=== PATIENT | female | born 1995 | race Caucasian/White ===

== ENCOUNTER 2024-04-28 05:08 | Emergency (ER) | payer OTHER, SELFPAY ==
[2024-04-28 05:18] VITALS: BP 112/80; PULSE 86; RESP 16; TEMP 36.5; O2SAT 100
[2024-04-28] MEDS: HYDROcodone/acetaminophen (*CRX) 5-325 MG TABLET 1 TAB PO (07:06)
[2024-04-28] MEDS: CYCLOBENZAPRINE HCL 10 MG TABLET PO (07:15)
--- NOTE | 2024-04-28 07:26 | ED.GENADULT ---
HPI - General Adult General Chief complaint: Back Pain/Injury Stated complaint: muscle spasms in low back; 19 weeks Time Seen by Provider: 04/28/24 05:35 History of Present Illness HPI narrative: 28-year-old female that is 19 weeks presented to the emergency department for evaluation for left hip pain. Patient states she has had prior history of sciatica. Patient has been having worsening sciatica pain over the course of the last few days. Patient has been taking Tylenol for pain control without significant improvement. Patient denies any associated numbness or weakness of the left leg but states that she does have intermittent radiating pain down that leg. Patient denies any urinary symptoms. Patient denies any falls or injuries. Related Data Allergies Allergy/AdvReac Type Severity Reaction Status Date / Time Corticosteroids Allergy Unknown Verified 04/28/24 05:24 (Glucocorticoids) latex Allergy Rash Verified 04/28/24 05:24 Review of Systems Review of Systems: All systems reviewed & are unremarkable except as noted in HPI and below Exam Narrative: APPEARANCE: Well appearing, no pain, no distress, well-nourished. HEAD: normocephalic, atraumatic. EYES: PERRLA/EOMI, conjunctivae clear. NOSE: Normal no drainage EARS:TMS clear with good light reflex. THROAT: Pharynx clear, no exudate. NECK: Supple. No adenopathy, no masses. RESPIRATORY: Airway patent, respirations nonlabored. Clear to auscultation bilaterally, no rales, rhonchi, wheezing. CARDIOVASCULAR: Regular rate and rhythm without murmurs rubs or gallops. ABDOMINAL: Soft, nontender, nondistended, normal bowel sounds MUSCULOSKELETAL: Tenderness of back into left hip NEURO: Alert. Cranial nerves II through XII intact. SKIN: Warm, dry. Normal Color Course Vital Signs Vital signs: Vital Signs Temperature 97.7 F 04/28/24 05:18 Pulse Rate 86 04/28/24 05:18 Respiratory Rate 16 04/28/24 05:18 Blood Pressure 112/80 04/28/24 05:18 Pulse Oximetry 100 04/28/24 05:18 Oxygen Delivery Room Air 04/28/24 05:18 Temperature 97.7 F 04/28/24 05:18 Pulse Rate 75 04/28/24 07:57 Respiratory Rate 15 04/28/24 07:57 Blood Pressure 103/64 04/28/24 07:57 Pulse Oximetry 99 04/28/24 07:57 Oxygen Delivery Room Air 04/28/24 05:18 Medical Decision Making MDM Narrative Medical decision making narrative: 20-year-old female present to the emergency department for evaluation for left lower back pain consistent with sciatica. Patient was initially treated with p.o. medications but additionally we did add IV Dilaudid. Patient was also treated with p.o. Flexeril. Patient did have some minor improvement with her symptoms. Patient was provided additional medications for pain control for home. Patient denies any urinary symptoms. Patient denies any numbness or weakness. Patient was encouraged of close follow-up with her physicians and to return to the emergency department she any worsening symptoms. All questions concerns were addressed. Differential Diagnosis Differential Diagnosis: Lower back pain, sciatica, hip strain, radiculopathy Vital Signs Vital Signs: Vital Signs Temperature 97.7 F 04/28/24 05:18 Pulse Rate 86 04/28/24 05:18 Respiratory Rate 16 04/28/24 05:18 Blood Pressure 112/80 04/28/24 05:18 Pulse Oximetry 100 04/28/24 05:18 Oxygen Delivery Room Air 04/28/24 05:18 Temperature 97.7 F 04/28/24 05:18 Pulse Rate 75 04/28/24 07:57 Respiratory Rate 15 04/28/24 07:57 Blood Pressure 103/64 04/28/24 07:57 Pulse Oximetry 99 04/28/24 07:57 Oxygen Delivery Room Air 04/28/24 05:18 Lab Data Lab results reviewed: Yes I reviewed the patient's lab results. Discharge Plan Discharge Clinical Impression: Sciatica, Strain of lumbar region Patient Disposition: Home, Self-Care Condition: Stable Instructions: Antibiotic Form, Sciatica (ED), Lumbar Radiculopathy (ED) Additional Instructions: Tylenol for pain control. Replace Tylenol with [place] for additional pain control. Do not take Tylenol and [place] at the same time as both contain acetaminophen. Flexeril for muscle spasm. Topical lidocaine patch back as needed. Continue have close follow-up with your primary care physician. Have close follow-up with OB. If you have any worsening symptoms or if you have any questions or concerns then please call or return to the emergency department. Prescriptions: New hydrocodone-acetaminophen 5-325 mg tablet 1 tablet PO Q6H PRN (Reason: pain) Qty: 14 0RF cyclobenzaprine 10 mg tablet 10 mg PO BID PRN (Reason: muscle spasm) Qty: 14 0RF Follow-up/Referrals: UNKNOWN,DOCTOR [Primary Care Provider] -
[2024-04-28] MEDS: HYDROmorphone HCL INJ (*CRX) 1 MG/ML SYR IV PUSH (07:55)
[2024-04-28 07:57] VITALS: BP 103/64; PULSE 75; RESP 15; O2SAT 99
== END 2024-04-28 09:12 | disposition home or self-care (01) ==
PROVIDERS: Emergency Provider Emergency Medicine
DX: O99.891 Other specified diseases and conditions complicating pregnancy (principal); M54.42 Lumbago with sciatica, left side; O9A.212 Injury, poisoning and certain other consequences of external causes complicating pregnancy, second trimester; S39.012A Strain of muscle, fascia and tendon of lower back, initial encounter; Z3A.19 19 weeks gestation of pregnancy; X58.XXXA Exposure to other specified factors, initial encounter
CPT/HCPCS: 96374; 99284; A9270; J1171

== ENCOUNTER 2024-09-24 08:23 | Outpatient (RCR) | payer OTHER, SELFPAY ==
[2024-09-19 14:47] VITALS: BP 113/68; PULSE 87
--- NOTE | ~2024-09-24 | US_ITS ---
LIMITED OBSTETRIC ULTRASOUND Ordering provider: Efrem Valdovinos MD History: . DANIE . Comparison: None. FINDINGS: MATERNAL CERVIX: Not visualized. cm which is normal. PRESENTATION: Vertex. Longitudinal lie. PLACENTAL LOCATION: Posterior No previa. HEART RATE: 152 bpm (normal is between 110 to 160 bpm). AMNIOTIC FLUID INDEX: 5.6 cm. 5th percentile is 7 cm. 95th percentile is 22.6 cm. Largest vertical p ocket is 3 cm. normal (DANIE between 5-25 cm in from 20-35 weeks gestation is considered normal). IMPRESSION: Single live fetus. Lowe DANIE. Reviewed, dictated and finalized at location A.
--- NOTE | ~2024-09-24 | US_ITS ---
EXAMINATION: US OB follow up DATE: 09/19/2024 14:23 INDICATION: Estimated weight. Passed due dates. TECHNIQUE: Real-time ultrasound of the pelvis was performed. The interpreting radiologist was not pre sent for the study. COMPARISON: None. FINDINGS: There is a single living fetus in vertex presentation. The placenta is posterior and not low-lying. heart rate is 126 beats per minute (bpm). The amniotic fluid index is 10.2 cm, which is normal (5th%-95%: 7.1-21.4 cm at 40 weeks estimated gestational age) . The following biometric data were obtained: BPD: 9.2 cm -> 37 weeks 4 days Head circumference: 33.6 cm -> 38 weeks 3 days Abdominal circumference: 34.2 cm -> 38 weeks 0 days Femur length: 7.3 cm -> 37 weeks 3 days These measurements are concordant. Head circumference to abdominal circumference ratio: 0.98 (normal range 0.90-1.05). Estimated weight: 3334 g (+/-) 500 g or 7 lbs. 6 oz. (+/-) 1 lbs. 2 oz. IMPRESSION: 1. Single living fetus in vertex presentation with heart rate of 126 bpm. 2. Gestational age by ultrasound of 37 weeks 6 day(s) +/- 2 week(s) 5 day(s) with ultrasound estimate d date of delivery (MARTIR) of 10/04/2024. Estimated weight is 24th percentile by Hadlock criteria when 09/17/2024 is used as the MARTIR. Please correlate with clinical information or earlier ultrasounds f or most accurate MARTIR. 3. Normal amniotic fluid index of 10.2 cm. Reviewed, dictated and finalized at location A. IMPRESSION: 1. Single living fetus in vertex presentation with heart rate of 126 bpm. 2. Gestational age by ultrasound of 37 weeks 6 day(s) +/- 2 week(s) 5 day(s) wi th ultrasound estimated date of delivery (MARTIR) of 10/04/2024. Estimated we ight is 24th percentile by Hadlock criteria when 09/17/2024 is used as the MARTIR. P lease correlate with clinical information or earlier ultrasounds for most accur ate MARTIR. 3. Normal amniotic fluid index of 10.2 cm.
[2024-09-24 09:00] VITALS: BP 110/65; PULSE 72
--- NOTE | 2024-09-24 09:53 | PC.NURSE ---
Called Dr. Valdovinos at [phone] to report pt. NST result, DANIE result, and UCs. Orders received to discharge pt. home to be induced tomorrow morning.
== END 2024-10-09 17:13 | disposition home or self-care (01) ==
LOC: ANHOBOP 08:23
PROVIDERS: Visit Provider Obstetrics & Gynecology
DX: O48.0 Post-term pregnancy (principal)
CPT/HCPCS: 59025; 76815; 76816

== ENCOUNTER 2024-09-25 06:32 | Inpatient (IN) | payer OTHER, SELFPAY ==
[2024-09-25] VITALS (156 sets, daily range): BP systolic 62–166; BP diastolic 12–108; PULSE 41–165; RESP 14; TEMP 36.9–37.4; O2SAT 78–100; BMI 33.2
--- NOTE | 2024-09-25 06:32 | LDADM ---
This patient, Anjali Arriaga, was admitted to Labor/Delivery/Recovery 108 on 09/25/24 at 06:32. Plans for labor, pain management and were discussed with patient. Patient/family oriented to hospital policies and general routines including ID bracelet, bed and alarms, visiting hours, pain management, procedures, bathroom and other care routines, personal items, smoking policy, room service/diet and guest tray routines, infant security routines, and visiting hours. Patient/Family are encouraged to report perceived risks to care and to ask questions if they do not understand what they are told or what they should do. See OBIX for further documentation.
--- OUTSIDE RECORDS SUMMARY | 2024-09-25 06:38 | XMS_ITS | Data Portability ---
Author Organization [place] - [facility] [employer], Main Office Address [address] [place] [address] Assessment No assessment recorded. Plan of Treatment Reminders Order Date Submit Date Provider Last Modified By Organization Details Last Modified Time Details Appointments None recorded. Lab beta-HCG, quantitati ve, serum or plasma 2023 024 [employer], [address] , [place], [address], 4 06:03:26 Referral physical therapist referral - Please call pt to schedule 2023 024 [email or web address] [address] [facility], [address], [address], [place], [address], 5 09:06:22 Procedures None recorded. Surgeries None recorded. Imaging None recorded. Medication Orders None recorded. Patient TargetsNo targets recorded. Patient Instructions Encounter Date Encounter Id Patient Instructions Last Modified By Organization Details Last Modified Time 05/07/2024 [id number] sciatica: exercises [email or web address] Not available 05/07/2024 15:47:26 Reason for Referral Physical Therapist Referral for Bilateral sciatica Please call pt to schedule Referring Physician: Nicole Barbosa, Family Medicine, Encounter Date: 05/07/2024 Results Created Date Observation Date Name Description Value Unit Range Abnormal Flag Note LastModifiedBy Organization Detail LastModifiedTime 08/10/19 23 08/18/2022 PAP THINP REP LB, RFX HPV diagnosis: Commen t . NEGAT KEN FOR INTRA EPITH ELIAL LESIO N OR MALIG JACE . THIS SPECI MEN WAS RESCR EENED PART OF OUR QUALI TY CONTR OL PROGR AM. Not Available [facility] (Lab) [address] [place], [address], 08/18/2022 14:12:48 08/10/19 23 08/18/2022 PAP THINP REP LB, RFX HPV specimen adequacy: Madelyn Colbert Satis facto ry for evalu ation . No endoc ervic al compo nent is id entif ied. Not Available [facility] (Lab) [address] [place], [address], 08/18/2022 14:12:48 08/10/19 23 08/18/2022 PAP THINP REP LB, RFX HPV performed by: Madelyn ly, Cytot echno logis t (ASCP ) Not Available [facility] (Lab) [address] [place], [address], 08/18/2022 14:12:48 08/10/19 23 08/18/2022 PAP THINP REP LB, RFX HPV QC reviewed by: Madelyn Mueller n, Super visor y [employer]ot echno logis t (ASCP ) Not Available [facility] (Lab) [address] [place], [address], 08/18/2022 14:12:48 08/10/19 23 08/18/2022 PAP THINP REP LB, RFX HPV . . Not Available [facility] (Lab) [address] [place], [address], 08/18/2022 14:12:48 08/10/19 23 08/18/2022 PAP THINP REP LB, RFX HPV note: Madelyn george The Pap smear is a scree hernandez test desig tiana to aid in the detec tion of mita ligna nt and malig nant condi tions of the uteri ne cervi x. It is not a diagn ostic proce dure and shoul d not be used as the sole means of detec ting cervi gaby cance r. Both false -posi tive and false -nega tive repor ts do occur . . Not Available [facility] (Lab) [address] [place], [address], 08/18/2022 14:12:48 08/10/19 23 08/18/2022 PAP THINP REP LB, RFX HPV test methodology: Commen t This liqui d based ThinP rep(R ) pap test was scree tiana with the use of an image guide d syststevie m. Not Available [facility] (Lab) [address] [place], [address], 08/18/2022 14:12:48 08/10/19 23 08/18/2022 PAP THINP REP LB, RFX HPV . Commen t The HPV DNA refle x crite storm were not met with this speci men resul t there fore, no HPV testi ng was perfo rmed. . Perfo rmed at: [facility] [place] [address] , [place] [address] Lab Direc tor: Iris hubbard MD, Phone : [phone] Not Available [facility] (Lab) [address] [place], [address], 08/18/2022 14:12:48 01/16/20 24 01/17/2024 HCG, TOTAL , [place] [address] mIU/m L high Refer ence Range Nonpr egnan t or preme nopau solis <5 Postm enopa usal <10 Value s from diffe rent assay metho ds may vary. The use of this assay to monit or or to diagn ose patie nts with cance r or any condi tion unrel ated to pregn makayla has not been clear ed or appro rufus by the FDA or the [facility] actur er of the assay . Not Available [employer] [facility] [address], [place], [address], 01/17/2024 06:03:26 Result Notes None recorded. Problems Name Problem SNOMED Code Status Onset Date Resolution Date Notes Provider Name and Address Organization Details Recorded Time Family history of genetic mutation for Jaquez syndrome 6348057930956 106 Active 2022 Not Available [facility] 21:32:35 Cobalamin deficiency 495465595 Active 2022 Not Available [facility] 21:32:35 Pain in pelvis 63979067 Active 2022 Not Available [facility] 21:32:35 Vitamin D deficiency 07572190 Active 2022 Not Available [facility] 21:32:35 Herpes simplex 71254873 Active 2022 Not Available [facility] 21:32:35 Herpes labialis 6256435 Active 2022 Arlene Vasquez NP [address] [facility], [place] [address], [place], [address] , [employer] 3 11:04:22 Bilateral sciatica 8712421934411 9103 Active 2023 MARK Blair [address] [facility], [place] [address], [place], [address] , [employer] 4 15:41:59 Problem Notes None recorded. Procedures Surgical History Date Name Laterality Status Provider Name and Address Organization Details Recorded Time Tonsillectomy completed Not Available [facility] 08/17/2022 21:31:10 Imaging Results None recorded. Procedure Notes None recorded. Medical Equipment None Reported. Allergies Allergen ID Allergen Name Allergen Category Reaction Reaction Severity Criticality Documentation Date Start Date Code Code System Note Provider Name and Address Organization Details Recorded Time 44002 prednison e medicatio n Not available Not available Not available 08/17/2022 8640 RxNorm Not Available [facility] 21:34:24 79288 latex environme nt,medica tion Not available Not available Not available 05/07/2024 17516 91 RxNorm Arlene Perez RN [facility], [employer] 4 15:27:45 Medications Name Sig Start Date Stop Date Status Note LastModified by Organization Details LastModified Time cyclobenzap rine 10 mg tablet active Not Available Not Available Not Available triamcinolo ne acetonide 0.5 % topical cream APPLY TOPICALLY TO THE AFFECTED AREA TWICE DAILY NEEDED 07/19 completed Not Available Not Available Not Available valacyclovi r 1 gram tablet TAKE 2 TABLETS BY MOUTH EVERY DAY FOR 2 DAYS NEEDED 2023 active Not Available Not Available Not Avai lable hydrocodone 5 mg-acetamin ophen 325 mg tablet active Not Available Not Available No t Available prednisone 20 mg tablet TAKE 3 TABLETS BY MOUTH EVERY DAY FOR 5 DAYS 07/19 completed Not Available Not Available Not Available diclofenac sodium 75 mg tablet,sherry yed release Take 1 tablet twice a day by oral route as needed. active Not Available Not Available No t Available clotrimazol e 1 % topical cream APPLY TOPICALLY TO THE AFFECTED AREA EVERY 12 HOURS 07/19 completed Not Available Not Available Not Available Vitals Date Recorded Body mass index (BMI) Body height Oxygen saturation Oxygen saturation in Arterial blood by Pulse oximetry Heart rate Respiratory rate Body temperature Body weight Systolic blood pressure Diastolic blood pressure Provider Name and Address Organization Details Last Updated DateTime 3 26.8 kg/m2 172.72 cm 99 % 99 % 78 /min 16 /min 97.4 [degF] 62291.6 2 g 115 mm[Hg] 80 mm[Hg] Not Available [facility] 3 21:31:55 Date Recorded Body mass index (BMI) Body height Oxygen saturation Oxygen saturation in Arterial blood by Pulse oximetry Heart rate Respiratory rate Body temperature Body weight Systolic blood pressure Diastolic blood pressure Provider Name and Address Organization Details Last Updated DateTime 3 26.8 kg/m2 172.72 cm 99 % 99 % 88 /min 16 /min 97.7 [degF] 87861.6 9 g 113 mm[Hg] 79 mm[Hg] Not Available [facility] 3 21:31:55 Date Recorded Body height Body mass index (BMI) Body weight Body temperature Heart rate Respiratory rate Oxygen saturation Oxygen saturation in Arterial blood by Pulse oximetry Systolic blood pressure Diastolic blood pressure Provider Name and Address Organization Details Last Updated DateTime 4 175.26 cm 27.2 kg/m2 68401.7 5 g 98.1 [degF] 82 /min 16 /min 98 % 98 % 128 mm[Hg] 78 mm[Hg] Luca Babcock [facility] [employer] [facility] 4 14:25:29 Date Recorded Body height Body mass index (BMI) Body weight Body temperature Heart rate Respiratory rate Oxygen saturation Oxygen saturation in Arterial blood by Pulse oximetry Pain severity - 0-10 verbal numeric rating [Score] - Reported Systolic blood pressure Diastolic blood pressure Provider Name and Address Organization Details Last Updated DateTime 4 175.26 cm 26.6 kg/m2 82781.6 3 g 97.5 [degF] 78 /min 20 /min 98 % 98 % 0 122 mm[Hg] 70 mm[Hg] Arlene Perez RN [facility] [employer] [facility] 4 09:14:54 Date Recorded Body height Body mass index (BMI) Body weight Body temperature Heart rate Respiratory rate Oxygen saturation Oxygen saturation in Arterial blood by Pulse oximetry Pain severity - 0-10 verbal numeric rating [Score] - Reported Systolic blood pressure Diastolic blood pressure Provider Name and Address Organization Details Last Updated DateTime 4 175.26 cm 27.8 kg/m2 65687.0 7 g 97.9 [degF] 98 /min 20 /min 99 % 99 % 2 132 mm[Hg] 60 mm[Hg] Arlene Perez RN [facility] [employer] [facility] 4 15:31:45 Social History Question Answer Notes LastModified by Organizat ion Details LastModified Time Tobacco Smoking Status Never Smoker Not Available [facility] 08/17/2022 21:30:54 Do You Have An Advance Directive? No Information not available 01/16/2024 What Is Your Level Of Alcohol Consumption? Occasional [id number] Information not available 08/17/2022 What Is Your Level Of Caffeine Consumption? Moderate [id number].[id number] Information not available 08/17/2022 In The 14 Days Before Symptom Onset, Have You Had Close Contact With A Laboratory-confi rmed COVID-19 While That Case Was Ill? No Information not available 01/16/2024 In The 14 Days Before Symptom Onset, Have You Had Close Contact With A Person Who Is Under Investigation For COVID-19 While That Person Was Ill? No Information not available 01/16/2024 What Type Of Diet Are You Following? VEGETARIAN MIGRATION.[id number] Information not available 08/17/2022 What Is The Highest Grade Or Level Of School You Have Completed Or The Highest Degree You Have Received? XI48221-1 MIGRATION.98870 64017 Information not available 08/17/2022 What Is Your Occupation? [employer] MIGRATION.72343 82793 Information not available 08/17/2022 Have There Been Any Changes To Your Family Or Social Situation? Yes Pain, Baby Due In September Information not available 05/07/2024 Do You Use Insect Repellent Routinely? No MIGRATION.89622 62763 Information not available 08/17/2022 Where Do You Live? SingleLevelHouse MIGRATION.34764 53874 Information not available 08/17/2022 Do You Have A Medical Power Of Pastry Finisher? No Information not available 01/16/2024 Do You Have Any Pets? Yes MIGRATION.56027 32378 Information not available 08/17/2022 What Is Your Relationship Status? MIGRATION.35822 32060 Information not available 08/17/2022 Do You Use Your Seat Belt Or Car Seat Routinely? Yes MIGRATION.38230 17100 Information not available 08/17/2022 Are You Sexually Active? Yes Information not available 01/16/2024 Do You Have Smoke And Carbon Monoxide Detectors In Your Home? Yes MIGRATION.17249 13915 Information not available 08/17/2022 Are You Passively Exposed To Smoke? No MIGRATION.18070 03283 Information not available 08/17/2022 Are There Any Smokers In Your House? No MIGRATION.18805 01032 Information not available 08/17/2022 Do You Participate In Social Media? Yes MIGRATION.51616 30321 Information not available 08/17/2022 Do You Feel Stressed (tense, Restless, Nervous, Or Anxious, Or Unable To Sleep At Night)? [id number] Information not available 05/07/2024 Do You Use Sunscreen Routinely? Yes MIGRATION.09309 65571 Information not available 08/17/2022 Have You Recently Traveled Abroad? No Information not available 01/16/2024 Are You Currently In School? Yes MIGRATION.45493 48714 Information not available 08/17/2022 Do You Have Any Dietary Restrictions? No MIGRATION.54081 62106 Information not available 08/17/2022 Sex: Female Functional Status Question Answer Note LastModified by Organizat ion Details LastModified Time What is your exercise level? Moderate [id number] Information not available 08/17/2022 Mental Status None recorded. Family History Relationship Description Onset Age of this Age Resolved Age Notes LastModified by Organization Details LastModified Time Maternal Grandfather Type 2 diabetes mellitus [id number] Not available 08/17/2022 21:31:11 Paternal Uncle Family history of malignant neoplasm [id number] Not available 08/17/2022 21:31:11 Mother Osteonecrosi s MIGRATION.203 [id number] Not available 08/17/2022 21:31:12 Medical History Condition Response BLINDNESS N RHEUMATIC FEVER N KIDNEY STONES N BLADDER PROBLEMS N MRSA N OTHER # 1 N POLIO N LUNG DISEASE/DISORDER N HISTORY OF DRUG ABUSE N RADIATION / CHEMOTHERAPY N COPD N Other # 2 N BLOOD DISEASES N SURGERY N EAR OR HEARING PROBLEMS N MUMPS N SHINGLES N FEMALE PROBLEMS / INFECTIONS N DEPRESSION (INCLUDING POST ) N BOWEL PROBLEMS N FAILED BACK SYNDROME N STROKE/TIA N THYROID DISEASE N ULCERS N BENIGN PROSTATIC HYPERPLASIA N MEASLES N CERVICALGIA N TB SKIN TEST N HYPOTENSION N MYOCARDIAL INFARCTION N PARAPELGIA N OBESITY N GERD/NAUSEA N ANEURYSM N URINARY/BLADDER/KIDNEY PROBLEMS N CORONARY ARTERY DISEASE (CAD) N MENIERE'S DISEASE N Do you have Advance directive? N ADDICTION CONCERNS N ENDOMETRIOSIS N USE OF BLOOD THINNERS N SKIN PROBLEMS N EMPHYSEMA N GASTROINTESTINAL DISORDER N PERIPHERAL ARTERY DISEASE N MUSCLE,JOINT OR BONE PROBLEMS N GASTROINTESTINAL BLEEDING N BLOOD CLOTS N ASTHMA N CATARACTS N Abdominal Pain N ERECTILE DYSFUNCTION N ARTERIAL INSUFFICIENCY N GI PROBLEMS N CHF N Low Testosterone N NEUROPATHY N INFERTILITY N AIDS/HIV N FRACTURES N CHEMOTHERAPY / RADIATION N VISION/EYE PROBLEMS N LIVER DISEASE N HYPERTENSION N TOURETTE'S N ANXIETY DISORDER N BLOOD TRANSFUSION N ANEMIA/BLOOD DISORDER N CHRONIC EAR INFECTIONS N BRONCHITIS N TUBERCULOSIS N GLAUCOMA N FOOT PROBLEM N DIVERTICULITIS N SLEEP APNEA N CHICKENPOX N ALLERGIES/HAYFEVER N BACK INJECTIONS N INFECTIOUS DISEASE N PROSTATE N HEART ARRHYTHMIA N ESRD N INSOMNIA N HIGH CHOLESTEROL / HYPERLIPIDEMIA N EYE PROBLEMS N HYPERTHYROIDISM N PVD N EATING DISORDER N EDEMA N CHRONIC PAIN SYNDROME N CONSTIPATION N CAROTID BLOCKAGE N BACK / NECK PROBLEMS N HAVE YOU BEEN HOSPITALIZED OR SEEN IN TH E ER IN THE PAST YEAR ? N ATHEROSCLEROSIS N BREAST PROBLEMS N DIALYSIS N POLYCYSTIC OVARIES N ECZEMA N FIBROMYALGIA N OSTEOPOROSIS N ARTHRITIS N NO SIGNIFICANT PAST MEDICAL HISTORY N APPENDICITIS N DIABETES, TYPE N BAD TEETH N VON WILLIBRAND'S DISEASE N HEARTBURN / REFLUX N ADD/ADHD N AUTISM SPECTRUM DISORDER (ASD) N POST LAMINECTOMY SYNDROME N HEPATITIS / LIVER DISEASE N PULMONARY DISEASE N GOUT N SLEEP DISORDER N ALZHEIMER'S DISEASE N PAIN N DEMENTIA N HERPES N SEIZURES/EPILEPSY N HEADACHES/MIGRAINES N VASCULAR DISEASE N PACEMAKER N DIZZINESS N KIDNEY DISEASE N HEART DISEASE/HEART PROBLEMS N SCARLET FEVER N MULTIPLE SCLEROSIS N MENTAL DISORDER/ILLNESS N DEVELOPMENTAL OR BEHAVIORAL DISORDERS N NEUROPSYCHOLOGICAL N CANCER: SPECIFY N CARDIAC ARRHYTHMIA N PNEUMONIA N ATRIAL FIBRILLATION N Gall Stones N PULMONARY EMBOLISM N AUTOIMMUNE DISEASE N Gynecological History Statement/Question Response Date of Last Pap 08/10/2022 Date of LMP 12/15/2023 Frequency of Cycle (Q days) 28 Obstetrics History GPAL:G 0 P 0 0 0 0 Immunizations Vaccine Type Date Status Note Provider Nam e and Address Organization Details Recorded Time SARS-COV-2 (COVID-19) vaccine, UNSPECIFIED 1 completed Not Available [facility] 08/17/2022 21:34:20 SARS-COV-2 (COVID-19) vaccine, UNSPECIFIED 1 completed Not Available [facility] 08/17/2022 21:34:21 Tdap 0 completed Not Available [facility] 08/17/2022 21:34:21 Influenza, split virus, quadrivalent, PF 0 completed Not Available [facility] 08/17/2022 21:34:21 Past Encounters Encounter ID Performer Location Encounter Start Date Encounter Closed Date Diagnosis/Indication Diagnosis SNOMED-CT Code Diagnosis ICD10 Code Diagnosis Note [id number] [facility] [address] [place] [address] 07/30/2021 00:00:00 07/30/2021 17:33:[id number] [address] 07/19/2022 00:00:00 07/19/2022 18:34:[id number] [address] 08/10/2022 00:00:00 08/10/2022 18:05:25 [id number] Nicole Gauthiermindyayush [address] [address] 09/21/2023 14:12:44 09/21/2023 15:12:03 Herpes simplex 20868731 B00.9 Continue valacyclov ir as prescribes Family his tory of genetic mutation for Jaquez syndrome 0761076360 123459 Z84.81 Colonoscop y recommende d, patient will consider and let us know [id number] Nicole Gauthierdany [address] [address] 01/16/2024 09:05:07 01/16/2024 09:30:51 Possible [id number] Z32.00 [id number] Nicole [address] [address] 05/07/2024 15:22:22 05/07/2024 15:53:22 Bilateral sciatica 4361859088 1776229 M54.31 M54.32 Advised to use topical diclofenac cream and tylenolCon tact OB to further discuss hydrocodon e Health Concerns Section Related Observation LastModified by Organization Detai ls LastModified Time None Recorded Concern Status LastModified by Organization Details LastModified Time None Recorded Advance Directives Directive N: Payers Encounter Date Sequence Insurance Name Policy Number Policy Cm Covered Member ID Cm Member ID Guarantor Name 09/21/2023 1 [facility] [id number] Anjali Arriaga [id number] Geetha Arriaga 01/16/2024 1 [facility] [id number] Anjali Arriaga [id number] Geetha Arriaga 05/07/2024 1 [facility] [id number] Anjali Arriaga [id number] Geetha Corina Notes Date Note Type Note Provider Name and Address Organization Details Recorded Time 09/21/2023 text/html Anjali Arriaga is a 28 year old female patient here to establish care. She was previously under the care of Arlene Vasquez DNP who is no longer with this clinic. She is overall healthy. She has a history of herpes labialis. She has valacyclovir 1 gram on hand as needed. Required once every 3-4 months She has a family history of Jaquez Syndrome. Colonoscopy recommended, she will consider and let us know Flu shot: received flu shot in JunOVID vaccine: received two rounds of covid vaccine in Aug 2020 and September 2020 (Foruforever)Tdap: 06/2019 MARK Blair [address] [facility] [facility] [address], [place], [address], [employer] 10/09/2023 16:55:47 01/16/2024 text/html Anjali Arriaga is a 28 year old female patient here today for a possibility of . She has not missed her period yet, but had 2 positive home tests on 01/13/24. She would like a blood HCG She is doing well mentally. She has started a with folic acid and plans to call an OBGYN today MARK Blair [address] [facility], [facility] [address], [place], [address], [employer] 01/16/2024 09:27:46 05/07/2024 text/html Anjali Arriaga is a 28 year old female patient here to for EDUARDO sciatica pain She states she went to the ER on 04/23/24 for severe sciatic pain, was given cyclobenzaprine and Millstone 5/325mg, discussed risk of these medications with patient todayStill has pain ranging from 4-9/10 MARK Blair [address] [facility], [place], [address], [employer] 05/07/2024 15:50:18 OBGyn Episode No OBEpisode recorded.
[2024-09-25 07:30] LABS: Basophils Percent Auto 0.2 % (0.2-1.2); Eosinophils Absolute Auto 0.1 K/mm3 (0-0.3); Eosinophils Percent Auto 0.6 % (0-4.4); Hematocrit 35.2 % (37.0-47.0); Hemoglobin 11.5 g/dL (12.0-15.0); Immature Granulocyte Absolute 0.06 K/mm3 (0.00-0.031); Immature Granulocyte Percent A 0.7 % (0-0.5); Lymphocytes Absolute Auto 1.44 K/mm3 (0.9-3.2); Lymphocytes Percent Auto 17.7 % (18.3-44.2); Mean Corpuscular HGB Conc 32.7 g/dl (32-36); Mean Corpuscular Hemoglobin 32.5 pg (26-34); Mean Corpuscular Volume 99.4 fl (80-100); Mean Platelet Volume 9.5 fl (7.4-10.4); Monocytes Absolute Auto 0.6 K/mm3 (0.1-0.6); Monocytes Percent Auto 7.7 % (2.6-8.5); Neutrophils Absolute Auto 5.9 K/mm3 (1.3-6.7); Neutrophils Percent Auto 73.1 % (45.5-73.1); Platelet Count Result 208 k/mm3 (150-375); Red Blood Count 3.54 M/mm3 (4.2-5.4); Red Cell Distribution Width 12.9 % (11.5-14.5); White Blood Count 8.1 K/mm3 (4.5-10.0)
[2024-09-25 08:07] LABS: Syphilis IgG/IgM Antibody Negative (Negative)
[2024-09-25 08:20] LABS: HIV 1/2 Ab P24 Ag Result Negative (Negative)
[2024-09-25] MEDS: LACTATED RINGERS 1,000 ML 125 ML IV CONT ×2 (08:28→14:11)
[2024-09-25] MEDS: OXYTOCIN 30 UNITS/NS 500 ML 30 UNITS/500 ML BAG 6 UNITS IV CONT (08:29)
--- NOTE | 2024-09-25 08:54 | PM.IMHP ---
H&P: HPI History of Present Illness Date/Time: 09/25/24 08:54 Chief Complaint: Here for induction of labor. Narrative: 29 y/o G1 at 41 weeks who had DANIE 5 cm on ultrasound yesterday. I offered induction of labor for oligohydramnios. GBS neg. otherwise uncomplicated. Review of Systems Review of Systems: All systems reviewed & are unremarkable except as noted in HPI and below PMFSH Past Medical History Medical History History of cold sores History of anxiety Surgical History Surgical History History of tonsillectomy Family History Family History Grandparent Hypertension Other Cancer Social History Social History Smoking status: Never smoker Substance use: never Do You Feel Safe in your Home?: Yes Lack of Transportation: No Lack of Food: Never True Current Housing: I Have Housing Concerned About Future Housing: No Difficulty Paying Gas/Electric Bills: No Difficulty Paying for Meds: No Currently Unemployed: No Education: Master's Degree or Higher Difficulty w/ Childcare or Family Care: No Spiritual care concerns: No Meds Home Medications and Allergies Home Medications ?Medication ?Instructions ?Recorded ?Confirmed ?Type magnesium oxide 250 mg PO DAILY 08/17/24 09/25/24 History vitamins no.159-iron 1 tablet PO DAILY 08/17/24 09/25/24 History fumarate 28 mg-folic acid 800 mcg tablet ( Vitamin) valacyclovir 1 gram tablet 1,000 mg PO Q12H PRN Fever blister 08/17/24 09/25/24 History Allergies Allergy/AdvReac Type Severity Reaction Status Date / Time latex Allergy Rash Verified 09/19/24 13:10 Corticosteroids AdvReac Unknown Verified 09/19/24 13:10 (Glucocorticoids) Vital Signs Vital Signs - 24 hr 09/25/24 07:28 09/25/24 07:30 09/25/24 08:00 Pulse Rate 78 80 80 Blood Pressure 105/59 L 102/57 L 110/69 09/25/24 08:15 09/25/24 08:30 Pulse Rate 84 77 Blood Pressure 106/68 106/66 Exam Const: Orientation/consciousness: patient oriented x3 Other: Well-developed, well-nourished female in no acute distress. Neck: Thyroid: thyroid normal Lymphatic: no lymphadenopathy noted (in neck, axilla or inguinal nodes) Resp: Effort & Inspection: normal respiratory effort Auscultation: clear to auscultation bilaterally Cardio: Rate: regular rate Rhythm: regular rhythm Heart sounds: S1 normal heart sound present and S2 normal heart sound present GI: Other: ABD: Gravid, soft, nontender, nondistended. No guarding or rebound tenderness. No hepatosplenomegaly. NST reactive. TOCO: rare contractions. : General: Yes no CVA tenderness Other: Cervix 2-3/80/-2. AROM with scant clear fluid. IUPC placed. Vertex. Back/Spine/Pelvis: Back: no CVA tenderness Skin: General skin exam: normal color and no rashes or lesions noted Neuro: General: patient oriented x3 Extrem: Other: Extremities: nontender with no edema Psych: Mental Status: mental status grossly normal Affect: normal affect H&P: Results Labs Labs: Short CBC 09/25/24 Range/Units 07:12 WBC 8.1 (4.5-10.0) K/mm3 Hgb 11.5 L (12.0-15.0) g/dL Hct 35.2 L (37.0-47.0) % Plt Count 208 (150-375) k/mm3 Assessment and Plan Assessment and plan (1) Term : Code(s): Z34.90 - Encounter for supervision of normal , unspecified, unspecified trimester Status: Acute Assessment and Plan: A: IUP at 41 weeks with oligohydramnios. P: Offered induction of labor. Reviewed risks, benefits, alternatives in detail and she elects to proceed. Oxytocin intravenously. Anticipate . (2) Oligohydramnios in third trimester: Code(s): O41.03X0 - Oligohydramnios, third trimester, not applicable or unspecified Status: Acute
--- NOTE | 2024-09-25 13:00 | PM.OBPNLAB ---
Pain Control Date/time seen: 09/25/24 13:00 Comments: Feeling painful contractions. Pelvic Exam Dilation (cm): 4 Effacement (%): 80 station: -2 Contractions Contraction frequency: 3 Contraction pattern: Regular Status status: Category l Assessment and Plan Pitocin rate (mU/min): 6 Comments: Continue labor.
--- NOTE | 2024-09-25 14:02 | WPDANESEPP ---
Anes - Eval Pre Procedure Procedure: Labor epidural Date/Time: 09/25/24 14:02 Preop Diagnosis: Pain during labor Pre Op Diagnosis: IOL Patient Data Age: 29 Gender: F Height: 1.73 m Weight: 99 kg Last Vital Signs Pulse 82 09/25/24 14:01 BP 115/66 09/25/24 14:01 Pulse Ox 78 L 09/25/24 14:00 Allergies Allergy/AdvReac Type Severity Reaction Status Date / Time latex Allergy Rash Verified 09/19/24 13:10 Corticosteroids AdvReac Unknown Verified 09/19/24 13:10 (Glucocorticoids) Home Medications ?Medication ?Instructions ?Recorded ?Confirmed ?Type magnesium oxide 250 mg PO DAILY 08/17/24 09/25/24 History vitamins no.159-iron 1 tablet PO DAILY 08/17/24 09/25/24 History fumarate 28 mg-folic acid 800 mcg tablet ( Vitamin) valacyclovir 1 gram tablet 1,000 mg PO Q12H PRN Fever blister 08/17/24 09/25/24 History Laboratory Tests 09/25/24 07:12 WBC 8.1 K/mm3 (4.5-10.0) RBC 3.54 L M/mm3 (4.2-5.4) Hgb 11.5 L g/dL (12.0-15.0) Hct 35.2 L % (37.0-47.0) MCV 99.4 fl (80-100) MCH 32.5 pg (26-34) MCHC 32.7 g/dl (32-36) RDW 12.9 % (11.5-14.5) Plt Count 208 k/mm3 (150-375) MPV 9.5 fl (7.4-10.4) Immature Gran % (Auto) 0.7 H % (0-0.5) Neut % (Auto) 73.1 % (45.5-73.1) Lymph % (Auto) 17.7 L % (18.3-44.2) [place] % (Auto) 7.7 % (2.6-8.5) Eos % (Auto) 0.6 % (0-4.4) Baso % (Auto) 0.2 % (0.2-1.2) Lymph # (Auto) 1.44 K/mm3 (0.9-3.2) [place] # (Auto) 0.6 K/mm3 (0.1-0.6) Eos # (Auto) 0.1 K/mm3 (0-0.3) Baso # (Auto) 0.0 K/mm3 (0.0-0.1) Abs Immat Gran (auto) 0.06 H K/mm3 (0.00-0.031) Absolute Neuts (auto) 5.9 K/mm3 (1.3-6.7) Absolute Nucleated RBC 0.000 K/mm3 (0.0-0.012) Nucleated RBC % 0.0 % (0.0-0.2) Syphilis IgG/IgM Ab Negative (Negative) HIV 1&2 Ab/P24 Ag 4thGn Negative (Negative) Blood Type O Positive Antibody Screen Negative Patient hx anesthesia problems: none Family hx anesthesia problems: none Results Review: All pre-operative results and documents have been reviewed as part of the pre-operative evaluation. FORMERLY [facility], [facility] Past Medical History Medical History History of cold sores History of anxiety Surgical History Surgical History History of tonsillectomy Family History Family History Grandparent Hypertension Other Cancer Social History Social History Smoking status: Never smoker Substance use: never Do You Feel Safe in your Home?: Yes Lack of Transportation: No Lack of Food: Never True Current Housing: I Have Housing Concerned About Future Housing: No Difficulty Paying Gas/Electric Bills: No Difficulty Paying for Meds: No Currently Unemployed: No Education: Master's Degree or Higher Difficulty w/ Childcare or Family Care: No Spiritual care concerns: No Exam Day of Procedure 09/25/24 14:02 Patient weight: overweight Heart: regular rate and rhythm Lungs: clear to auscultation and normal air movement Airway: Mallampati scale Neurological: alert and oriented
--- NOTE | 2024-09-25 17:36 | PM.OBPNLAB ---
Pain Control Date/time seen: 09/25/24 17:36 Comments: Comfortable with epidural Pelvic Exam Dilation (cm): 10 Effacement (%): 100 station: +1 Contractions Contraction frequency: 3 Contraction pattern: Regular Status status: Category l Assessment and Plan Pitocin rate (mU/min): 6 Comments: Begin pushing
--- NOTE | 2024-09-25 18:25 | PM.OBPRVD ---
OB - Vaginal Delivery Note Procedure Delivery date: 09/25/24 Events: Oligohydramnios Induction method: Per Pitocin Protocol Delivery augmentation: Rupture of Membranes Delivery monitor: External FHT, External Uterine and Internal Uterine Route of delivery: Episiotomy description: None Laceration Description: Perineal - 2nd Degree Delivery repair: vicryl (3-0) Specimen: Yes (cord blood) Quantitative Blood Loss (ml): 140 Anesthesia type: Epidural Disposition: PACU Complications: None Narrative: 29 y/o G1 at 41 weeks gestation who presented to the hospital for induction of labor. Oxytocin was administered intravenously. Amniotomy was performed with return of clear fluid. She received an epidural for pain control. Her labor progressed and her cervix dilated completely. She pushed with good effort and delivered the infant's head to the perineum, followed by the body. The nose and mouth were bulb suctioned. After a delay, the cord was clamped and cut. The infant was handed off the field. Cord blood was collected. The placenta delivered spontaneously and was grossly normal in appearance. The usual 3 vessel cord was noted. A second degree midline perineal laceration was sustained. This was reapproximated using 3 0 Vicryl in the usual layered fashion. Excellent hemostasis resulted as did excellent reapproximation of the normal anatomy. Needle and instrument counts were correct. The patient was taken to recovery room in stable condition. The went to the nursery in stable condition. I was present and scrubbed for the entire delivery. Baby Date of : 09/25/24 Time of : 18:05 Gestational Age by Date: 41 Infant gender: Female presentation: vertex position: Left Occiput Anterior Placenta delivery description: Spontaneous and Normal Configuration Cord Vessel Description: 3 Vessels and Delayed Cord Clamping
--- NOTE | 2024-09-25 18:27 | PM.OBDSVD ---
DS: Admitting Diagnosis Discharge Date 09/27/24 Admitting Diagnosis IUP at 41 weeks Oligohydramnios DS: Discharge Diagnosis Discharge Diagnosis (1) (normal spontaneous vaginal delivery): Code(s): O80 - Encounter for full-term uncomplicated delivery Status: Acute OB - DS: Summary OB Procedures : None OB Procedures Intrapartum: Spontaneous Vag Delivery OB Procedures: : None Peripartum Data Laceration Description: Perineal - 2nd Degree Episiotomy description: None Time Spent with Patient Time attestation: Total time spent providing and/or coordinating discharge services: DS: Data Data Completed and Pending Labs on day of discharge: Labs from last 24 hours 09/25/24 07:12 WBC 8.1 RBC 3.54 L Hgb 11.5 L Hct 35.2 L MCV 99.4 MCH 32.5 MCHC 32.7 RDW 12.9 Plt Count 208 MPV 9.5 Immature Gran % (Auto) 0.7 H Neut % (Auto) 73.1 Lymph % (Auto) 17.7 L [place] % (Auto) 7.7 Eos % (Auto) 0.6 Baso % (Auto) 0.2 Lymph # (Auto) 1.44 [place] # (Auto) 0.6 Eos # (Auto) 0.1 Baso # (Auto) 0.0 Abs Immat Gran (auto) 0.06 H Absolute Neuts (auto) 5.9 Absolute Nucleated RBC 0.000 Nucleated RBC % 0.0 Syphilis IgG/IgM Ab Negative HIV 1&2 Ab/P24 Ag 4thGn Negative Blood Type O Positive Antibody Screen Negative Discharge Plan Discharge Attending physician on discharge: Efrem Valdovinos Discharging Clinician: Efrem Valdovinos Patient Disposition: Home Activity: pelvic rest Diet: regular Discharge Instructions: Call or return if temperature above 100.4? F, increased abdominal pain, increased vaginal bleeding or any new problems. Patient Language: Mongolian Stand Alone Forms: General Discharge Information Follow-up/Referrals: Efrem Valdovinos MD [Physician] - 6 Weeks Discharge Medications: New ibuprofen 600 mg tablet 600 mg PO Q6H PRN (Reason: cramps) Qty: 30 0RF Continued valacyclovir 1 gram tablet 1,000 mg PO Q12H PRN (Reason: Fever blister) Vitamin 28 mg iron- 800 mcg tablet 1 tablet PO DAILY magnesium oxide 250 mg magnesium tablet 250 mg PO DAILY Date of admission: 09/25/24 06:32 Primary Care Provider: UNKNOWN,DOCTOR Admitting Provider: Efrem Valdovinos Attending physician on admission: Efrem Valdovinos Condition: Stable
[2024-09-25] MEDS: OXYTOCIN 30 UNITS/NS 500 ML 30 UNITS/500 ML BAG 125 UNITS IV CONT (18:38)
[2024-09-25] MEDS: IBUPROFEN 600 MG TABLET PO (19:39)
[2024-09-26] MEDS: IBUPROFEN 600 MG TABLET PO ×3 (02:12→16:48)
[2024-09-26] MEDS: ACETAMINOPHEN 325 MG TABLET 650 MG PO ×3 (02:12→16:48)
[2024-09-26 04:30] VITALS: BP 98/63; PULSE 64; RESP 14; TEMP 37.3; O2SAT 100
[2024-09-26 06:06] LABS: Hematocrit 31.3 % (37.0-47.0); Hemoglobin 10.1 g/dL (12.0-15.0)
--- NOTE | 2024-09-26 07:15 | PC.NURSE ---
Assisted mother to latch to the right breast in cross cradle hold. Mom handles baby very well and holds her breast for cross cradle with ease. Mom's nipples are flat and don't anders with stimulation. Baby is able to latch without a nipple shield as long as mom makes a 'bite' for her. Mom was given a nipple shield but hasn't needed to use it. She has bruising on both areolas, perhaps due to off center or shallow latch with previous feedings. Mom declines nipple pain with this feeding. Encouraged her to call out for assistance with switching sides or for any questions or concerns. name/number provided for an additional resource throughout the day. Mom agrees to call out for any needed assistance. RN updated.
[2024-09-26 08:00] VITALS: PULSE 86; RESP 16; O2SAT 100
[2024-09-26 08:20] VITALS: BP 98/69; PULSE 86; RESP 16; TEMP 36.9; O2SAT 100
--- NOTE | 2024-09-26 08:39 | P.PNOB_ITS ---
OB - PN: Subj Subjective Date/time seen: 09/26/24 08:39 Narrative: Pain OK. OB - PN: Obj Data Labs 09/26/24 04:40 Labs: Laboratory Results - last 24 hr 09/26/24 04:40 Hgb 10.1 L Hct 31.3 L OB - PN A/P Plan day: 1 Comments: A: PPD#1, doing well. P: Routine care. Exam 2 Psych: Other: AVSS ABD soft, nontender, fundus firm EXT nontender
[2024-09-26] MEDS: DOCUSATE SODIUM 100 MG CAPSULE PO ×2 (10:24→16:49)
--- NOTE | 2024-09-26 10:29 | WPDANLDPN2 ---
Anes-Prog Note L&D Date/Time: 09/26/24 10:29 Neuro status: Neuro function grossly intact. Cardiovascular status: normal Respiratory status: normal Airway patency: baseline Mental status: baseline Vital Signs: Last Vital Signs Temp 36.9 C 09/26/24 08:20 Pulse 86 09/26/24 08:20 Resp 16 09/26/24 08:20 BP 98/69 L 09/26/24 08:20 Pulse Ox 100 09/26/24 08:20 O2 Del Method Room Air 09/25/24 21:00 Pain score (VAS): 0 I/O: Intake & Output 09/25/24 09/26/24 09/26/24 23:59 07:59 15:59 Intake Total 100 Output Total 140 Balance -40 Patient feedback: Patient satisfied with anesthetic care.
--- NOTE | 2024-09-26 11:15 | PC.NURSE ---
Checked in with patient to see how feedings are going. Baby's father is at the bedside and mom is . She fed on the first breast and switched sides independently. She denies nipple pain and the latch appears optimal. Baby is vigorous and actively suckling. Mom says that she is having increased cramping pain with and we reviewed that this is a good sign that her body is responding as expected to . Mom looks happy and comfortable and doesn't have any further questions at this time. RN updated.
[2024-09-26 19:30] VITALS: BP 120/76; PULSE 80; RESP 14; TEMP 36.9; O2SAT 99
[2024-09-27] MEDS: IBUPROFEN 600 MG TABLET PO ×2 (01:28→10:36)
[2024-09-27] MEDS: ACETAMINOPHEN 325 MG TABLET 650 MG PO ×2 (01:28→10:36)
[2024-09-27 07:47] VITALS: BP 103/65; PULSE 79; RESP 14; TEMP 36.8; O2SAT 99
[2024-09-27 08:00] VITALS: PULSE 79; RESP 14; O2SAT 99
--- NOTE | 2024-09-27 08:58 | P.PNOB_ITS ---
OB - PN: Subj Subjective Date/time seen: 09/27/24 08:58 Narrative: Pain OK. Would like to go home. OB - PN: Obj Data Labs 09/26/24 04:40 OB - PN A/P Assessment and Plan (1) (normal spontaneous vaginal delivery): Code(s): O80 - Encounter for full-term uncomplicated delivery Status: Acute Plan day: 2 Comments: A: PPD#2, doing well. P: Home to f/u 6 weeks. Exam 2 Psych: Other: AVSS ABD soft, nontender, fundus firm EXT nontender
--- NOTE | 2024-09-27 09:45 | PC.NURSE ---
[id number] Consulted with mother concerning needs and she shared her ability to independently latch infant optimally without pain. Mother was able to latch baby to her left breast in cross cradle and maintain latch, RN reminded mother to make sure baby's lips are flanged out and not rolled in. Mother is feeding appropriately for growth of infant and understands stimulating to eat if needed. Infant has had appropriate feedings in the last 24 hours meets the outcomes for weight, output, blood sugar and jaundice at this time. Reinforced understanding of milk production, transition of milk, signs of adequate intake, transition of stool, prevention/relief of engorgement, plugged ducts, mastitis, responsive watching for feeding cues, the different methods of stimulating to breastfeed 1-3 hours after the start of the last feeding, community resources, and when to call a provider using the resource of the feeding sheet along with the mom and baby guide. Mother voiced understanding of the information shared, is confident to continue effectively her infant at home, when to call for assistance, denies any additional assistance or education at this time. Reported to the Primary RN.
[2024-09-27] MEDS: DOCUSATE SODIUM 100 MG CAPSULE PO (09:47)
--- NOTE | 2024-09-27 12:29 | PC.NURSE ---
1130-Patient viewed the discharge video Mother & Baby Care, The First Two Weeks . Patient was given the opportunity and encouraged to ask questions. Patient verbalized understanding of information shared and has been given the mother/baby guide for home reference.
[2024-09-28 09:22] VITALS: BP 120/71; PULSE 87; RESP 18; TEMP 36.8; O2SAT 97
== END 2024-09-27 12:25 | disposition home or self-care (01) | DRG 807 ==
LOC: ANHLDR 18:28 → ANHOB2 21:02
PROVIDERS: Admitting Provider Obstetrics & Gynecology; Visit Provider Obstetrics & Gynecology
DX: O41.03X0 Oligohydramnios, third trimester, not applicable or unspecified (principal); Z37.0 Single live birth; O70.1 Second degree perineal laceration during delivery; Z3A.41 41 weeks gestation of pregnancy
CPT/HCPCS: 36415; 85014; 85018; 85025; 86593; 86703; 86850; 86900; 86901; A9270; G0432; J2590; J2795; J7120

== ENCOUNTER 2025-02-12 06:43 | Outpatient (CLI) | payer OTHER, SELFPAY ==
--- NOTE | ~2025-02-12 | MR_ITS ---
Clinical history:Bilateral sciatica EXAM:MRI lumbar spine with and without contrast TECHNIQUE:Multiplanar, multisequence images were obtained with and without IV contrast. Comparisons:None available FINDINGS: Lumbar vertebral body heights are within normal limits. No compression fracture in the lumbar spine. Tip of the conus medullaris ends at the L1 level. No abnormal signal within the spinal cord. Disc desiccation at the L3-4, L4-5 and L5-S1 levels. No pathologic enhancement. Minimal grade 1 retrolisthesis of L3 on L4. Bone mineralization is within normal limits. At the L3-4 level, there is a small broad-based disc bulge with degenerative change in the facet joints and hypertrophy of the ligamentum flavum causing mild narrowing of the spinal canal and mild narrowing of the bilateral neural foramen. At the L4-L5 level, there is a large central posterior disc extrusion with degenerative change in the facet joints and hypertrophy of the ligamentum flavum causing severe narrowing of the spinal canal. Mild narrowing of the bilateral neural foramen. At the L5-S1 level, there is a moderate sized posterior broad-based disc bulge with degenerative change in the facet joints and hypertrophy of ligamentum flavum causing mild narrowing of the spinal canal and mild narrowing of the bilateral neuroforamen. Annular fissure in the intervertebral disc at the L5-S1 level. Mild intervertebral disc space narrowing at the L5-S1 level. IMPRESSION: 1. At the L4-L5 level, there is a large central posterior disc extrusion with degenerative change in the facet joints and hypertrophy of the ligamentum flavum causing severe narrowing of the spinal canal. Mild narrowing of the bilateral neural foramen. 2. Mild to moderate discogenic and degenerative change at the L3-4 and L5-S1 levels as detailed above. 3. No pathologic enhancement Reviewed, dictated and finalized at location Q. IMPRESSION: 1. At the L4-L5 level, there is a large central posterior disc extrusion with d egenerative change in the facet joints and hypertrophy of the ligamentum flavum causing severe narrowing of the spinal canal. Mild narrowing of the bilateral neural foramen. 2. Mild to moderate discogenic and degenerative change at the L3-4 and L5-S1 le vels as detailed above. 3. No pathologic enhancement
== END 2025-02-12 06:44 | disposition home or self-care (01) ==
LOC: ANHIMG 06:47
DX: M51.16 Intervertebral disc disorders with radiculopathy, lumbar region (principal); M47.896 Other spondylosis, lumbar region
CPT/HCPCS: 72158; A9577